=== PATIENT | female | born 1975 | race African-American/Black ===

== ENCOUNTER 2017-06-19 19:26 | Emergency (ER) | payer OTHER ==
[~2017-06-19] VITALS: Ht 154.9 cm; Wt 86.2 kg
--- NOTE | ~2017-06-19 | CR63 ---
[facility] A Service of [facility] RADIOLOGY TEXT RESULTS PATIENT: LAVONNE CAMARENA LOCATION: [facility] : 75 UNIT #: [id number] AGE: [address]: Jared Mcdowell DO SEX: F ORDER DR: [id number] [facility] [address] [place], [place] [address] [id number] E MR#: [id number] Acc #: [id number] NAME: LAVONNE CAMARENA : 1975 SEX: F STUDY DATE/TIME: 06/19/2017 21:18 UNIT: [facility] ROOM: STUDY DESCRIPTION: CR Chest 2 View Attending Physician: Er Doctor Tereza Referring Physician: [facility] Ordering Physician: Jared Mcdowell D.O. Primary Care Physician: [facility] MEDICAL IMAGING REPORT This report is preliminary unless electronic signature is present EXAM PA and lateral chest. HISTORY Cough and congestion and shortness of air for 2 days. FINDINGS 2 views of the chest demonstrate the cardiac size and pulmonary vascularity are normal. No infiltrates or effusions. Incidental cervical ribs. IMPRESSION No acute findings. No active disease. Dictated by... Cm Lombardo M.D. THIS IS AN ELECTRONICALLY VERIFIED REPORT Cm Lombardo M.D. at 06/20/2017 11:38 PM DFLeoncio/yoly TD: 06/20/2017 08:39 JOB #: [id number] MEDICAL IMAGING REPORT Page 1 of 1 COPY
[~2017-06-19 19:26] MED LIST: NAPROXEN PO
[2017-06-19 20:37] LABS: BASOPHIL# 0.1 X10e3 (0-0.3); BASOPHIL% 0.7 % (0-2.5); EOSINOPHIL# 0.1 X10e3 (0-0.7); EOSINOPHIL% 1.5 % (0.0-7.0); HEMATOCRIT 39.6 % (35.0-45.0); HEMOGLOBIN 13.5 gm/dL (12.0-16.0); LYMPHOCYTE# 2.9 X10e3 (1.0-3.5); LYMPHOCYTE% 32.3 % (17.0-45.0); MEAN CELL VOLUME 97.3 FL (83-96); MEAN CORPUSCULAR HEMOGLOBIN 33.1 PG (28-34); MEAN CORPUSCULAR HGB CONC 34.1 g/dL (30-36); MEAN PLATELET VOLUME 7.6 FL (6.5-11.5); MONOCYTE# 0.2 X10e3 (0-1.0); MONOCYTE% 2.7 % (3.0-12.0); NEUTROPHIL# 5.7 X10e3 (1.5-7.1); NEUTROPHIL% 62.8 % (40-75); PLATELET COUNT 363 X10e3 (140-420); RED BLOOD COUNT 4.07 X10e (3.90-5.30); RED CELL DISTRIBUTION WIDTH 14.4 % (11.0-15.5); WHITE BLOOD COUNT 9.1 X10e3 (4.0-10.5)
[2017-06-19 20:39] LABS: DIFF IND NO
[2017-06-19 20:53] LABS: ALBUMIN SERUM 4.1 g/dL (3.5-5.0); ALKALINE PHOSPHATASE 119 U/L (32-92); ALT (SGPT) 14 U/L (10-40); AST (SGOT) 20 U/L (10-42); BILIRUBIN,TOTAL 0.2 mg/dL (0.2-2.0); BLOOD UREA NITROGEN 8 mg/dL (9-23); BUN/CREATININE RATIO 11.42; CALCIUM SERUM 9.3 mg/dL (8.4-10.2); CARBON DIOXIDE 27 mmol/L (22-31); CHLORIDE 99 mmol/L (100-111); CREATININE SERUM 0.7 mg/dL (0.6-1.4); GLOM FILT RATE Estimated 124.7 mL/min (>60); GLUCOSE FASTING 107 mg/dL (70-110); LIPASE 22 U/L (22-51); POTASSIUM 3.2 mmol/L (3.5-5.1); PROTEIN TOTAL SERUM 8.8 g/dL (6.0-8.3); SODIUM 135 mmol/L (135-145)
[2017-06-19 20:54] LABS: BILIRUBIN, DIRECT <0.1 mg/dL (0.0-0.2); BILIRUBIN,INDIRECT 0.1 mg/dL (0.0-0.9)
[2017-06-19 21:08] LABS: POC - CKMB <1.0 ng/mL (0.0-7.9); POC - TROPONIN <0.05 ng/mL (<=0.05)
[2017-06-19 21:08] LABS: URINE SOURCE CLEAN CATCH
[2017-06-19 21:18] LABS: URINE APPEARANCE CLOUDY; URINE BILIRUBIN NEG (NEG); URINE BLOOD NEG (NEG); URINE COLOR YELLOW; URINE GLUCOSE NEG (NEG); URINE KETONE NEG (NEG); URINE LEUKOCYTE ESTERASE NEG (NEG); URINE NITRATE NEG (NEG); URINE PROTEIN NEG (NEG); URINE SPECIFIC GRAVITY 1.011 (1.003-1.035)
[2017-06-19 21:29] LABS: CULTURE INDICATED? NO
== END 2017-06-20 01:00 | disposition home or self-care (01) ==
LOC: CED 19:26
PROVIDERS: Emergency Medicine
DX: R06.00 Dyspnea, unspecified (principal); F31.9 Bipolar disorder, unspecified; J45.909 Unspecified asthma, uncomplicated; Z77.098 Contact with and (suspected) exposure to other hazardous, chiefly nonmedicinal, chemicals; Z98.890 Other specified postprocedural states; Z88.2 Allergy status to sulfonamides
CPT/HCPCS: 71020; 80048; 80076; 81003; 82375; 82553; 83690; 84484; 85025; 85379; 94640; 96374; 99284; J2930

== ENCOUNTER 2017-06-20 14:40 | Emergency (ER) | payer OTHER ==
[~2017-06-20] VITALS: Ht 154.9 cm; Wt 86.2 kg
--- NOTE | ~2017-06-20 | CT16 ---
[facility] A Service of [facility] RADIOLOGY TEXT RESULTS PATIENT: LAVONNE CAMARENA LOCATION: [facility] : 75 UNIT #: [id number] AGE: [address]: Andrés Tapia MD SEX: F ORDER DR: [id number] [facility] [address] [place], [place] [address] [id number] E MR#: [id number] Acc #: [id number] NAME: LAVONNE CAMARENA : 1975 SEX: F STUDY DATE/TIME: 06/20/2017 16:45 UNIT: [facility] ROOM: STUDY DESCRIPTION: CT Angio Chest for PE Attending Physician: Andrés Tapia M.D. Ordering Physician: Boris Man M.D. Primary Care Physician: [facility] MEDICAL IMAGING REPORT This report is preliminary unless electronic signature is present EXAM CT angiogram chest with IV contrast. HISTORY Chest pain and shortness of air since yesterday. TECHNIQUE This CT exam was performed with one or more of the following radiation dose reduction techniques: automatic exposure control, adjustment of mA and/or kV according to patient size, and iterative reconstruction. FINDINGS IV contrast enhanced CT angiogram of the chest was performed with 3-D reconstructions. Mild bilateral axillary adenopathy and multiple borderline enlarged mediastinal lymph nodes are more prominent than on CT 12/21/2014. Normal caliber thoracic aorta. Normal-caliber pulmonary arteries. No evidence of pulmonary embolus. Qxfz-jx-wlwawitl multifocal patchy ground-glass infiltrates in the bilateral lower lobes are nonspecific. Incidental small Bochdalek hernia, posterior left lower chest, containing fat. Multiple small gallstones. The gallbladder is nondistended. IMPRESSION 1. Incidental cervical ribs. 2. No evidence of pulmonary embolus. 3. Mhxt-xr-vdiqyeoc patchy ground-glass infiltrates in the lower lungs bilaterally could be infectious or inflammatory. 4. Borderline bilateral axillary and mediastinal and hilar nodes are nonspecific. These could be reactive or inflammatory as well. 5. Small gallstones within a contracted gallbladder. 6. Remainder of the study is stable. [facility] A Service of [facility] RADIOLOGY TEXT RESULTS PATIENT: LAVONNE CAMARENA [id number] : 75 UNIT #: [id number] AGE: [address]: Andrés Tapia MD SEX: F ORDER DR: Dictated by... Cm Lombardo M.D. THIS IS AN ELECTRONICALLY VERIFIED REPORT Cm Lombardo M.D. at 06/21/2017 2:17 PM DFL/marcella TD: 06/21/2017 06:20 JOB #: [id number] MEDICAL IMAGING REPORT Page 1 of 1 COPY
== END 2017-06-20 18:27 | disposition home or self-care (01) ==
LOC: CED 14:40
DX: J20.9 Acute bronchitis, unspecified (principal); J45.909 Unspecified asthma, uncomplicated; I10 Essential (primary) hypertension; Z98.51 Tubal ligation status; F17.200 Nicotine dependence, unspecified, uncomplicated; Z88.2 Allergy status to sulfonamides
CPT/HCPCS: 71275; 96374; 99285; J2060; Q9967